=== PATIENT | female | born 2000 | race Caucasian/White ===

== ENCOUNTER 2020-09-25 15:25 | Emergency (ER) | payer OTHER ==
[~2020-09-25] VITALS: Ht 157.5 cm; Wt 54.8 kg
[2020-09-25] MEDS ORDERED: IBUP200T45 PO (15:45)
[2020-09-25] MEDS ORDERED: ZOFR4TAB16 PO ×2 (15:45→21:00)
[2020-09-25 16:20] LABS: BASO # 0.1 10^3/uL (0.0-0.2); BASO % 0.6 % (0.0-1.0); EOS # 0.1 10^3/uL (0.0-0.5); EOS % 1.3 % (0.0-3.0); HEMATOCRIT 40.8 % (36.0-47.0); HEMOGLOBIN 13.4 g/dl (12.0-15.5); LYMPH # 2.2 10^3/uL (1.5-5.0); LYMPH % 26.2 % (24.0-44.0); MEAN CORPUSCULAR HEMOGLOBIN 30.8 pg (27.0-33.0); MEAN CORPUSCULAR HGB CONC 32.8 g/dl (32.0-36.5); MEAN CORPUSCULAR VOLUME 93.8 fl (80.0-96.0); MONO # 0.6 10^3/uL (0.0-0.8); MONO % 6.9 % (2.0-8.0); NEUTROPHILS # 5.4 10^3/uL (1.5-8.5); NEUTROPHILS % 64.5 % (36.0-66.0); PLATELET COUNT, AUTOMATED 216 10^3/uL (150-450); RED BLOOD COUNT 4.35 10^6/uL (4.00-5.40); WHITE BLOOD COUNT 8.3 10^3/uL (4.0-10.0)
[2020-09-25 17:02] LABS: ALBUMIN 3.8 GM/DL (3.2-5.2); BILIRUBIN,DIRECT 0.2 MG/DL (0.0-0.2); BILIRUBIN,TOTAL 0.7 MG/DL (0.2-1.0); TOTAL PROTEIN 6.7 GM/DL (6.4-8.2)
[2020-09-25] MEDS ORDERED: NS 1,000 ML IV ONE (17:15)
[2020-09-25] MEDS ORDERED: LIDOCAINE 2% W/ EPINEPHRINE 1.7 ML DENTAL INJ SM ONE (17:25)
--- NOTE | 2020-09-25 18:10 | REP ---
INDICATION: IUD out March unknown LMP, +HCG. COMPARISON: None. TECHNIQUE: Transabdominal scanning is performed. FINDINGS: Normal size uterus is seen with dimensions of 8.2 x 5.1 x 5.6 cm. There is a gestational sac in the endometrium with mean sac size diameter of 1.1 cm. This corresponds with a 5 week 6 day gestational age estimate. No embryonic pole is appreciated. A yolk sac is seen. There is no evidence of free fluid. Right ovary is not visualized is and appears to be obscured by bowel gas. No right adnexal cyst is seen. The left ovary is normal measuring 3.1 x 2.0 x 2.5 cm. Normal Doppler flow is seen in the left ovary with resistive index 0.49. IMPRESSION: There is an intrauterine gestational sac containing a yolk sac but no visible embryonic pole, 5 weeks 6 days size by mean sac size diameter. Clinical and possibly sonographic follow-up is advised. <Electronically signed by Christos Forbes > 09/25/20 2261
[2020-09-25] MEDS ORDERED: METOCLOPRAMIDE INJ 10MG/2ML VIAL (J2765 PER 1) IV ONE (18:45)
[2020-09-25] MEDS ORDERED: AUGM875T28 PO (20:35)
[2020-09-25 21:03] VITALS: BP 119/71
== END 2020-09-25 21:07 | disposition home or self-care (01) ==
LOC: M ED 15:25 → EDBD 15:25 → M ED 21:07
DX: O99.611 Diseases of the digestive system complicating pregnancy, first trimester (principal); K08.89 Other specified disorders of teeth and supporting structures; O21.9 Vomiting of pregnancy, unspecified; Z3A.01 Less than 8 weeks gestation of pregnancy; Z88.2 Allergy status to sulfonamides
CPT/HCPCS: 64400; 76801; 76817; 80047; 80076; 81001; 83690; 84702; 85025; 86901; 93976; 96360; 96374; 99284; J2765

== ENCOUNTER 2020-12-24 14:59 | Emergency (ER) | payer OTHER ==
[~2020-12-24] VITALS: Ht 157.5 cm; Wt 60.9 kg
[~2020-12-24 14:59] MED LIST: AUGM875T28 PO; IBUP200T45 PO; ZOFR4TAB16 PO
[2020-12-24] MEDS ORDERED: REGL5TAB2 PO (15:11)
[2020-12-24] MEDS ORDERED: ONDANSETRON 4MG/2ML VIAL IV ONE (17:20)
[2020-12-24] MEDS ORDERED: NS 1,000 ML IV ONE (17:20)
[2020-12-24] MEDS ORDERED: ACETAMINOPHEN 500 MG TAB PO ONE (17:20)
[2020-12-24 18:15] LABS: BASO % 0.3 % (0.0-1.0); EOS # 0.1 10^3/uL (0.0-0.5); EOS % 1.1 % (0.0-3.0); HEMATOCRIT 38.2 % (36.0-47.0); HEMOGLOBIN 12.8 g/dl (12.0-15.5); LYMPH # 2.1 10^3/uL (1.5-5.0); LYMPH % 17.5 % (24.0-44.0); MEAN CORPUSCULAR HEMOGLOBIN 31.3 pg (27.0-33.0); MEAN CORPUSCULAR HGB CONC 33.5 g/dl (32.0-36.5); MEAN CORPUSCULAR VOLUME 93.4 fl (80.0-96.0); MONO # 0.6 10^3/uL (0.0-0.8); NEUTROPHILS # 9.2 10^3/uL (1.5-8.5); NEUTROPHILS % 75.1 % (36.0-66.0); PLATELET COUNT, AUTOMATED 210 10^3/uL (150-450); RED BLOOD COUNT 4.09 10^6/uL (4.00-5.40); WHITE BLOOD COUNT 12.2 10^3/uL (4.0-10.0)
--- NOTE | 2020-12-24 18:35 | REP ---
INDICATION: lower abd pain, 19 weeks preg. COMPARISON: 09/25/2020. TECHNIQUE: Real-time sonographic evaluation of gravid uterus performed. FINDINGS: There is a single living intrauterine gestation, estimated gestational age is reportedly 18 weeks 6 days, EDC 05/21/2021. position is cephalic. Placenta anterior and grade 1 with no previa or abruption. heart rate 134 beats per minute. Amniotic fluid appears within normal limits. Cervix is closed and measures 3.7 cm in length. No adnexal abnormality is seen. The left ovary is clearly visualized and is normal. IMPRESSION: Single living intrauterine gestation as discussed above with no evidence of placenta previa or abruption. No adnexal abnormality identified. <Electronically signed by Alvin Ayers > 12/24/20 2901
[2020-12-24 18:48] LABS: ALBUMIN 2.9 GM/DL (3.2-5.2); ALT/SGPT 16 U/L (12-78); BILIRUBIN,DIRECT < 0.1 MG/DL (0.0-0.2); BILIRUBIN,TOTAL 0.4 MG/DL (0.2-1.0); BLOOD UREA NITROGEN 6 MG/DL (7-18); CALCIUM LEVEL 8.2 MG/DL (8.5-10.1); CARBON DIOXIDE LEVEL 22 MEQ/L (21-32); CHLORIDE LEVEL 107 MEQ/L (98-107); CREATININE FOR GFR 0.41 MG/DL (0.55-1.30); GLOMERULAR FILTRATION RATE > 60.0 (>60); GLUCOSE, FASTING 68 MG/DL (70-100); POTASSIUM SERUM 3.7 MEQ/L (3.5-5.1); SODIUM LEVEL 137 MEQ/L (136-145); THYROID STIMULATING HORMONE 0.864 uIU/ML (0.358-3.740); TOTAL PROTEIN 6.3 GM/DL (6.4-8.2)
[2020-12-24 18:53] LABS: RSV AMPLIFICATION NEGATIVE (NEGATIVE)
[2020-12-24] MEDS ORDERED: ONDA4TAB6 PO (20:04)
[2020-12-24 20:16] VITALS: BP 93/55
[2020-12-24 20:16] LABS: AMPHETAMINES LEVEL URINE NEGATIVE (NEGATIVE); BARBITURATES URINE NEGATIVE (NEGATIVE); BENZODIAZEPINES URINE NEGATIVE (NEGATIVE); CANNABINOIDS URINE NEGATIVE (NEGATIVE); COCAINE METABOLITE URINE NEGATIVE (NEGATIVE); METHADONE URINE NEGATIVE (NEGATIVE); OPIATES URINE NEGATIVE (NEGATIVE); PHENCYCLIDINE URINE NEGATIVE (NEGATIVE)
--- NOTE | 2020-12-25 10:16 | ECGEPIP ---
[facility] - ED Test Date: 2020-12-24 Pat Name: JOSH TEJADA Department: Room: - Gender: Female [employer]: : [id number] Requested By: MORTEZA Li PA-C Order Number: [id number] Reading MD: Radha Del Cid Measurements Intervals [place] Rate: 70 P: 32 SC: 190 QRS: 50 QRSD: 100 T: 18 QT: 418 QTc: 451 Interpretive Statements Normal sinus rhythm No prior Electronically Signed on 12-25-2020 10:16:02 EDT by Radha Del Cid
== END 2020-12-24 20:44 | disposition home or self-care (01) ==
LOC: M ED 14:59
DX: O26.892 Other specified pregnancy related conditions, second trimester (principal); R51.9 Headache, unspecified; O21.9 Vomiting of pregnancy, unspecified; R19.7 Diarrhea, unspecified; Z3A.19 19 weeks gestation of pregnancy; Z87.59 Personal history of other complications of pregnancy, childbirth and the puerperium; Z88.2 Allergy status to sulfonamides; Z79.899 Other long term (current) drug therapy
CPT/HCPCS: 76815; 80047; 80048; 80076; 80307; 81001; 84439; 84443; 84702; 85025; 87631; 93005; 96361; 96374; 99284; J2405

== ENCOUNTER → 2021-01-04 | Outpatient (CLI) | payer OTHER ==
[~2021-01-04] MED LIST changes: +ONDA4TAB6 PO; +REGL5TAB2 PO
--- NOTE | 2021-01-04 09:32 | REP ---
INDICATION: ANATOMY. COMPARISON: Comparison sonography December 24, 2020. TECHNIQUE: Transabdominal obstetric sonography. FINDINGS: Scanning through the gravid uterus demonstrates a viable single intrauterine gestation in cephalic lie. motion is observed and heart rate is recorded at 140 beats per minute. A 2 anterior placenta is seen, grade 0, without evidence of placenta previa. Closed cervical length is measured at 4.6 cm transabdominally. No extrauterine abnormality is observed. Amniotic fluid is subjectively normal. No anomaly is seen. The following anatomic structures are identified and felt to be sonographically unremarkable: cranium, choroid plexus, cavum, cerebellum and posterior fossa, face and profile, lungs, four-chamber heart with left and right ventricular outflow tract views, diaphragm, left-sided stomach, abdominal wall cord insertion, three-vessel umbilical cord, kidneys and bladder, spine, and upper and lower extremities. Biometry chart: BPD 4.7 cm, 20 weeks 1 day Head circumference 18.1 cm, 20 weeks 3 days Abdominal circumference 15.5 cm, 20 weeks 5 days Femur length 3.2 cm, 20 weeks 1 day Humeral length 3.2 cm, 20 weeks 5 days HC AC ratio normal 1.17 Cephalic index normal 0.71 Estimated weight 352 g, 0 lb 12 oz, 53rd percentile for 20 weeks 2 days IMPRESSION: Viable single intrauterine gestation at 20 weeks 3 days by today's composite sonographic criteria. ELIU by today's sonography 21 May 2021. No complication identified. Expected gestational age estimate based on known ELIU of 22 May 2021 is 20 weeks 2 days. <Electronically signed by Christos Forbes > 01/04/21 0928
== END ==
LOC: M WHC 08:14
PROVIDERS: ATTEND Advanced Practice Midwife
DX: Z34.82 Encounter for supervision of other normal pregnancy, second trimester (principal); Z3A.20 20 weeks gestation of pregnancy

== ENCOUNTER 2021-01-26 12:48 | Outpatient (CLI) | payer OTHER ==
[~2021-01-26] VITALS: Ht 157.5 cm; Wt 63.4 kg
[2021-01-26 13:08] VITALS: BP 117/79
--- NOTE | 2021-01-26 13:45 | IPNPDOC ---
Text Note Date of Service The patient was seen on 01/26/21. NOTE 20 yo at 23 3/7 weeks by 6 week ultrasound (EDC=05/22/2020) presents with leakage of fluid per vagina after sitting up today. Small amount of leakage since then. no contractions. normal thus far. AVSS NAD Abd: NT, gravid FHT: cat. I toco: none SSE: neg fern, neg nitrazine, neg pool bedside ultrasound: normal PETE, transverse lie, good movement observed A/P 20 yo at 23 3/7 weeks with no evidence of ROM discharge home f-u as scheduled VS,Fishbone, I+O VS, Fishbone, I+O Vital Signs Date Time Temp Pulse Resp B/P (MAP) Pulse Ox O2 Delivery O2 Flow Rate FiO2 01/26/21 13:08 99.2 111 16 117/79 (92) Room Air MARCELLUS VITALE MD Jan 26, 2021 13:44
== END 2021-01-26 13:45 | disposition home or self-care (01) ==
LOC: M LDO 12:48
PROVIDERS: ATTEND Specialist
DX: O47.02 False labor before 37 completed weeks of gestation, second trimester (principal); Z3A.23 23 weeks gestation of pregnancy
CPT/HCPCS: 59025; 76815; G0378; G0463

== ENCOUNTER → 2021-03-01 | Outpatient (CLI) | payer OTHER ==
[~2021-03-01] MED LIST changes: -IBUP200T45 PO; +IBUP200T46 PO
[2021-03-01 18:43] LABS: HEMATOCRIT 35.9 % (36.0-47.0); HEMOGLOBIN 11.1 g/dl (12.0-15.5); MEAN CORPUSCULAR HEMOGLOBIN 29.5 pg (27.0-33.0); MEAN CORPUSCULAR HGB CONC 30.9 g/dl (32.0-36.5); MEAN CORPUSCULAR VOLUME 95.5 fl (80.0-96.0); PLATELET COUNT, AUTOMATED 242 10^3/uL (150-450); RED BLOOD COUNT 3.76 10^6/uL (4.00-5.40)
[2021-03-01 19:08] LABS: ALT/SGPT 10 U/L (12-78); BILIRUBIN,TOTAL 0.2 MG/DL (0.2-1.0); GLOMERULAR FILTRATION RATE > 60.0 (>60); GLUCOSE CHALLENGE TEST 1 HOUR 101 MG/DL (LESS THAN 140); LDH LACTATE DEHYDROGENASE 160 U/L (84-246); URIC ACID 2.8 MG/DL (2.6-6.0)
[2021-03-01 19:37] LABS: CREATININE,RANDOM URINE 61.9 MG/DL
[2021-03-01 19:57] LABS: HEPATITIS C VIRUS ABY INDEX < 0.0 INDEX (<0.8); HIV 1&2 SCREEN CENTAUR NEGATIVE (NEGATIVE)
[2021-03-01 23:35] LABS: GC DNA AMPLIFICATION NEGATIVE (NEGATIVE)
== END ==
LOC: M PLALAB 11:22
PROVIDERS: ATTEND Advanced Practice Midwife
DX: Z34.93 Encounter for supervision of normal pregnancy, unspecified, third trimester (principal); Z3A.25 25 weeks gestation of pregnancy
CPT/HCPCS: 36415; 82247; 82565; 82570; 82950; 83615; 84156; 84450; 84460; 84550; 85027; 86762; 86780; 86803; 86850; 86900; 86901; 87086; 87340; 87389; 87491; 87591; J2790

== ENCOUNTER 2021-03-19 17:45 | Outpatient (CLI) | payer OTHER ==
[~2021-03-19] VITALS: Ht 157.5 cm; Wt 69.3 kg
[2021-03-19 18:02] VITALS: BP 118/80
[2021-03-19] MEDS ORDERED: HOME MED LIST COMPLETE! XX SCH (18:10)
--- NOTE | 2021-03-19 18:54 | IPNPDOC ---
Text Note Date of Service The patient was seen on 03/19/21. NOTE S: Michelle is a 20 year-old at 30 6/7 with an ELIU of 05/22/21 as established by first trimester ultrasound. She reports uterine contractions that began this morning and have increased in frequency and severity. She denies vaginal bleeding or loss of fluids and reports good movement. She denies dysuria, urinary frequency, or hematuria. Her has been complicated by anxiety, poor compliance with care, and a history of gestational hypertension. O: VSS-see below Medical hx: anxiety with panic attacks Family hx: DM Surgical hx: tonsillectomy and wisdom teeth [employer] hx: last pap 2018, no history of STIs OB hx: Preg 1, 07/21/15, 38 5/7, , 7# 4oz, gestational htn Preg 2, 04/03/17 41 3/7, , 7# 3oz Preg 3, current Social hx: , denies tobacco, etoh or illicit drug use. Exam: General: alert and oriented x 3 Respiratory: breathing comfortably on room air, no use of accessory muscles Abdomen: gravid, NTTP Pelvic: SSE reveals visibly closed cervix, no abnormal discharge. SVE reveals cervix that is closed, thick, and high FHR:155, reactive strip [place]: uterine irritability After eating dinner and hydrating, patient reported improvement in her symptoms. Item Value Date Time Urine Color STRAW 03/19/211839 Urine Appearance CLEAR 03/19/211839 Urine pH 7.0 UNITS 03/19/211839 Urine Specific [place] 1.003 03/19/211839 Urine Protein NEGATIVE mg/dL 03/19/211839 Urine Glucose (Auto)(UA) NEGATIVE mg/dL 03/19/211839 Urine Ketones (Auto) 1+ mg/dL H 03/19/211839 Urine Blood NEGATIVE 03/19/211839 Urine Nitrite NEGATIVE 03/19/211839 Urine Bilirubin NEGATIVE 03/19/211839 Urine Urobilinogen 0.2 mg/dL 03/19/211839 Urine Leukocyte Esterase (Auto) NEGATIVE 03/19/211839 Urine WBC (Auto) 0 /HPF 03/19/211839 Urine RBC (Auto) 0 /HPF 03/19/211839 Urine Hyaline Casts (Auto) 0 /LPF 03/19/211839 Urine Bacteria (Auto) NEGATIVE 03/19/211839 Urine Squamous Epithelial Cells 1 /HPF 03/19/211839 A: IUP at 30 6/7, maternal and status reassuring, mild ketonuria, no evidence of labor P: Urine culture obtained. fibronectin obtained, positive result. Transvaginal ultrasound ordered, cervix is closed and 4.3 cm. Findings reviewed with patient. Reviewed hydration and increasing protein intake during the day. Reviewed third trimester precautions. F/U in office with next scheduled appointment. VS,Fishbone, I+O VS, Fishbone, I+O Vital Signs Date Time Temp Pulse Resp B/P (MAP) Pulse Ox O2 Delivery O2 Flow Rate FiO2 03/19/21 18:02 99.9 117 17 118/80 (93) Colette Pa CNM Mar 19, 2021 18:54
[2021-03-19 19:10] LABS: APPEARANCE, URINE CLEAR (CLEAR); BACTERIA, URINE AUTO NEGATIVE (NEGATIVE); BILIRUBIN, URINE AUTO NEGATIVE (NEGATIVE); BLOOD, URINE BLOOD NEGATIVE (NEGATIVE); COLOR, URINE STRAW (YELLOW); GLUCOSE, URINE (UA) AUTO NEGATIVE (NEGATIVE); KETONE, URINE AUTO 1+ mg/dL (NEGATIVE); LEUKOCYTE ESTERASE, URINE AUTO NEGATIVE (NEGATIVE); NITRITE, URINE AUTO NEGATIVE (NEGATIVE); PROTEIN, URINE AUTO NEGATIVE (NEGATIVE); RBC, URINE AUTO 0 /HPF (0-3); SPECIFIC GRAVITY URINE AUTO 1.003 (1.002-1.035); SQUAMOUS EPITHELIAL CELL UR AU 1 /HPF (0-6); UROBILINOGEN, URINE AUTO 0.2 mg/dL (0.0-2.0); WBC, URINE AUTO 0 /HPF (0-3)
[2021-03-19 19:33] VITALS: BP 110/67
--- NOTE | 2021-03-19 20:51 | REPVR ---
PROCEDURE INFORMATION: Exam: US , Transvaginal Exam date and time: 03/19/2021 8:24 PM Age: 20 years old Clinical indication: Lmp or gestational age (in weeks): 31wks; Other: Contraction; ; Additional info: Contractions, cervical length TECHNIQUE: Imaging protocol: Real-time transvaginal obstetrical ultrasound of the maternal pelvis with image documentation. Transvaginal imaging was used for better evaluation of the fetus, adnexa, and/or cervix. COMPARISON: OBS COMPLETE US 01/04/2021 8:23 AM FINDINGS: Gestation: Intrauterine gestation. presentation: Fetus in cephalic presentation. heart rate: heart rate 163 bpm. Placenta: Anterior placenta without evidence of placenta previa, grade 2. MATERNAL: Cervix: Cervix measures 4.5 cm. Mild funneling demonstrated. No bulging membranes. IMPRESSION: Cervix measures 4.5 cm. Mild funneling demonstrated. No bulging membranes. Electronically signed by: Mele Tinsley On 03/19/2021 20:51:03 PM
== END 2021-03-19 20:45 | disposition home or self-care (01) ==
LOC: M LDO 17:45
PROVIDERS: ATTEND Advanced Practice Midwife
DX: O60.03 Preterm labor without delivery, third trimester (principal); O99.343 Other mental disorders complicating pregnancy, third trimester; F41.9 Anxiety disorder, unspecified; Z86.32 Personal history of gestational diabetes; Z3A.30 30 weeks gestation of pregnancy
CPT/HCPCS: 59025; 76817; 81001; 82731; 87086; G0378; G0463

== ENCOUNTER 2021-03-22 13:49 | Outpatient (CLI) | payer OTHER ==
[~2021-03-22] VITALS: Ht 157.5 cm; Wt 69.7 kg
[2021-03-22 14:08] VITALS: BP 132/75
[2021-03-22] MEDS ORDERED: HOME MED LIST COMPLETE! XX SCH (14:30)
[2021-03-22 15:02] VITALS: BP 113/61
[2021-03-22 15:32] LABS: APPEARANCE, URINE CLEAR (CLEAR); BACTERIA, URINE AUTO 1+ (NEGATIVE); BILIRUBIN, URINE AUTO NEGATIVE (NEGATIVE); BLOOD, URINE BLOOD NEGATIVE (NEGATIVE); COLOR, URINE STRAW (YELLOW); GLUCOSE, URINE (UA) AUTO NEGATIVE (NEGATIVE); KETONE, URINE AUTO NEGATIVE (NEGATIVE); LEUKOCYTE ESTERASE, URINE AUTO NEGATIVE (NEGATIVE); NITRITE, URINE AUTO NEGATIVE (NEGATIVE); PROTEIN, URINE AUTO NEGATIVE (NEGATIVE); RBC, URINE AUTO 0 /HPF (0-3); SPECIFIC GRAVITY URINE AUTO 1.005 (1.002-1.035); SQUAMOUS EPITHELIAL CELL UR AU 1 /HPF (0-6); UROBILINOGEN, URINE AUTO 0.2 mg/dL (0.0-2.0); WBC, URINE AUTO 1 /HPF (0-3)
--- NOTE | 2021-03-22 15:59 | REP ---
INDICATION: contractions, cervical length. COMPARISON: None. TECHNIQUE: Transvaginal assessment of the cervix FINDINGS: The cervix measures 4.2 cm in length and is closed. IMPRESSION: As above. <Electronically signed by iMchael Duran > 03/22/21 2275
--- NOTE | 2021-03-22 16:26 | IPNPDOC ---
Text Note Date of Service The patient was seen on 03/22/21. NOTE Subjective: Michelle is a 20-year-old female who is a who is 31.2 weeks gestation with an ELIU of 05/22/21 based off of early first trimester ultrasound. She has had limited care and came to [facility] in her second trimester to establish care. Her has been complicated by anxiety with panic attacks, minimal care and a history of GHTN with her first . She was seen in L&D 2 days ago with complaints of painful contractions and she had a positive FFN and her cervix was over 4 cm with some funneling noted. Today she reports contractions that are painful over the last 2 days that have gotten worse. She also reports saturating her underwear one time today. Denies leaking any fluid since. Reports active movement. Denies vaginal bleeding. OB Hx: -07/21/15: of male at 38.5 weeks weighting 7 lbs 4 oz, epidural, no complications -04/03/17: of female at 41.3 weeks gestation, epidural, early placental abruption that resolved Medical Hx: anxiety with panic attacks Family Hx: diabetes Surgical Hx: wisdom teeth and tonsillectomy Social Hx: . No history of alcohol, drug or smoking. Objective: VS, labs and sono: see below. FHR: 140, moderate variability, positive accelerations, no decelerations. [place]: periods of very irregular infrequent contractions and then periods of contractions every 2 to 4 minutes General: Awake and alert. Sitting up in bed. Does not appear to be in any distress. Respiratory: regular rate and rhythm. No use of accessory muscles. Abdomen: soft and not tender to palpation SSE: Cervix appears thick and closed. No pooling of fluid noted and none from the cervical os with Valsalva. Negative nitrazine and negative fern. Normal physiologic discharge noted. No bleeding from cervical os. SCE: 1 cm, 50% effaced, -2 station, no show, midposition, moderate. Assessment: IUP at 31.2 weeks gestation, contractions, not in labor. Plan: Transvaginal ultrasound done. No change in cervical length and no funneling noted on sono. Given Terbutaline to see if this helps stop her contractions. Patient aware of findings. Contractions stopped with terbutaline. Reviewed access to care, kick count, labor signs and danger signs to report. Discharged to home with precautions. VS,Fishbone, I+O VS, Fishbone, I+O Vital Signs Date Time Temp Pulse Resp B/P (MAP) Pulse Ox O2 Delivery O2 Flow Rate FiO2 03/22/21 15:02 106 18 113/61 (78) 03/22/21 14:09 98.6 03/22/21 14:08 98 Room Air EXAMINATION REQUESTED: TRANSVAGINAL US REASON FOR PATIENT VISIT: LABOR CHECK. REASON FOR EXAM/COMMENT: contractions, cervical length INDICATION: contractions, cervical length. COMPARISON: None. TECHNIQUE: Transvaginal assessment of the cervix FINDINGS: The cervix measures 4.2 cm in length and is closed. IMPRESSION: As above. <Electronically signed by Michael Duran > 03/22/21 1555 DD: Michael Duran MD DO 03/22/21 1555 Item Value Date Time Urine Color STRAW 03/22/21 145 Urine Appearance CLEAR 03/22/21 145 Urine pH 7.0 UNITS 03/22/21 1459 Urine Specific [place] 1.005 03/22/21 145 Urine Protein NEGATIVE mg/dL 03/22/21 1459 Urine Glucose (Auto)(UA) NEGATIVE mg/dL 03/22/21 145 Urine Ketones (Auto) NEGATIVE mg/dL 03/22/21 1459 Urine Blood NEGATIVE 03/22/21 1459 Urine Nitrite NEGATIVE 03/22/21 1459 Urine Bilirubin NEGATIVE 03/22/21 145 Urine Urobilinogen 0.2 mg/dL 03/22/21 1459 Urine Leukocyte Esterase (Auto) NEGATIVE 03/22/21 1459 Urine WBC (Auto) 1 /HPF 03/22/21 1459 Urine RBC (Auto) 0 /HPF 03/22/21 1459 Urine Hyaline Casts (Auto) 0 /LPF 03/22/21 1459 Urine Bacteria (Auto) 1+ H 03/22/21 145 Urine Squamous Epithelial Cells 1 /HPF 03/22/21 1459 SCOTTY HARRISON Mar 22, 2021 16:26
[2021-03-22] MEDS ORDERED: TERBUTALINE SULFATE 1 MG/ML VIAL (J3105) SC ONE (16:30)
[2021-03-22 16:38] VITALS: BP 113/73
[2021-03-22] MEDS ORDERED: ONDANSETRON 4 MG ORAL DISINTEGRATING TAB PO ONE (17:30)
[2021-03-22 18:29] VITALS: BP 111/65
== END 2021-03-22 18:36 | disposition home or self-care (01) ==
LOC: M LDO 13:49
PROVIDERS: ATTEND Advanced Practice Midwife
DX: O60.03 Preterm labor without delivery, third trimester (principal); O99.343 Other mental disorders complicating pregnancy, third trimester; F41.0 Panic disorder [episodic paroxysmal anxiety]; Z3A.31 31 weeks gestation of pregnancy
CPT/HCPCS: 59025; 76817; 81001; 96372; G0378; G0463; J3105; Q0162

== ENCOUNTER 2021-04-22 17:19 | Outpatient (CLI) | payer OTHER ==
[~2021-04-22] VITALS: Ht 157.5 cm; Wt 72.2 kg
[2021-04-22 17:46] VITALS: BP 118/76
[2021-04-22] MEDS ORDERED: TYLENOL PM PO (18:18)
[2021-04-22] MEDS ORDERED: HOME MED LIST COMPLETE! XX SCH (18:20)
[2021-04-22] MEDS ORDERED: ACETAMINOPHEN 500 MG TAB PO ONE (18:35)
[2021-04-22 19:43] VITALS: BP 105/71
[2021-06-25] MEDS ORDERED: LEXA1TAB (07:21)
[2021-06-25] MEDS ORDERED: ADDE10CA3 PO (12:38)
[2021-06-25] MEDS ORDERED: XANA0.5T PO (12:38)
== END 2021-04-22 19:44 | disposition home or self-care (01) ==
LOC: M LDO 17:19
PROVIDERS: ATTEND Obstetrics & Gynecology
DX: O60.03 Preterm labor without delivery, third trimester (principal); Z3A.35 35 weeks gestation of pregnancy
CPT/HCPCS: 59025; 81001; G0378; G0463

== ENCOUNTER → 2021-05-04 | Outpatient (REF) | payer OTHER ==
[~2021-05-04] MED LIST changes: +ACET325C5 PO; +ADDE10CA3 PO; +LEXA1TAB; +TYLENOL PM PO; +XANA0.5T PO
== END ==
LOC: M SFHCWAGY 17:17
PROVIDERS: ATTEND Advanced Practice Midwife
DX: Z36.89 Encounter for other specified antenatal screening (principal); Z3A.37 37 weeks gestation of pregnancy

== ENCOUNTER → 2021-05-11 | Outpatient (REF) | payer OTHER ==
[~2021-05-11] MED LIST changes: -ADDE10CA3 PO; -LEXA1TAB; -XANA0.5T PO
== END ==
LOC: M SFHCWAGY 12:40
PROVIDERS: ATTEND Advanced Practice Midwife
DX: Z36.9 Encounter for antenatal screening, unspecified (principal)
CPT/HCPCS: 87086; G0463

== ENCOUNTER 2021-05-12 17:19 | Outpatient (CLI) | payer OTHER ==
[~2021-05-12] VITALS: Ht 157.5 cm; Wt 73.0 kg
[~2021-05-12 17:19] MED LIST changes: -ACET325C5 PO
[2021-05-12 17:40] VITALS: BP 119/76
[2021-05-12 19:47] VITALS: BP 124/75
== END 2021-05-12 20:15 | disposition home or self-care (01) ==
LOC: M LDO 17:19
PROVIDERS: ATTEND Advanced Practice Midwife
DX: O60.03 Preterm labor without delivery, third trimester (principal); O99.343 Other mental disorders complicating pregnancy, third trimester; F41.9 Anxiety disorder, unspecified; Z3A.38 38 weeks gestation of pregnancy
CPT/HCPCS: 59025; G0378; G0463

== ENCOUNTER 2021-05-17 07:45 | Inpatient (IN) | payer OTHER ==
[~2021-05-17] VITALS: Ht 157.5 cm; Wt 73.7 kg
[2021-05-17] VITALS (42 sets, daily range): BP systolic 69–148; BP diastolic 36–103
[2021-05-17] MEDS ORDERED: ACET325C5 PO (08:07)
[2021-05-17] MEDS ORDERED: HOME MED LIST COMPLETE! XX SCH (08:10)
[2021-05-17] MEDS ORDERED: LACTATED RINGER'S 1000 ML IV STA (09:16)
[2021-05-17] MEDS ORDERED: CARBOPROST TROMETHAMINE 250 MCG/ML AMP IM PRN (09:20)
[2021-05-17] MEDS ORDERED: LIDOCAINE 1% MDV 20ML VIAL INFIL PRN (09:20)
[2021-05-17] MEDS ORDERED: LR 1,000 ML IV SCH (09:20)
[2021-05-17] MEDS ORDERED: TRANEXAMIC ACID INJection 1,000 MG in NS 100 ML IV PRN (09:20)
[2021-05-17] MEDS ORDERED: METHYLERGONOVINE MALEATE 0.2 MG/ML VIAL (J2210) IM PRN ×2 (09:20→23:20)
[2021-05-17] MEDS ORDERED: OXYTOCIN DRIP 30 UNITS in IV 1 EA IV PRN (09:20)
[2021-05-17] MEDS ORDERED: OXYTOCIN DRIP 30 UNITS in IV 1 EA IV SCH (10:40)
[2021-05-17 10:53] LABS: HEMATOCRIT 32.2 % (36.0-47.0); HEMOGLOBIN 9.7 g/dl (12.0-15.5); MEAN CORPUSCULAR HGB CONC 30.1 g/dl (32.0-36.5); PLATELET COUNT, AUTOMATED 236 10^3/uL (150-450); RED BLOOD COUNT 3.88 10^6/uL (4.00-5.40); WHITE BLOOD COUNT 12.1 10^3/uL (4.0-10.0)
[2021-05-17] MEDS ORDERED: FENTANYL 2MCG/ML ROPIVACAINE 0.2% IN 0.9% NACL 100ML IVBAG As Ordered ONE (19:28)
[2021-05-17] MEDS ORDERED: EPIDURAL COMMENT XX SCH (21:10)
[2021-05-17] MEDS ORDERED: REFRIGERATOR IV KEYS XX PRN (21:10)
[2021-05-17] MEDS ORDERED: diphenhydrAMINE 50MG/ML VIAL (J1200) IV PRN (21:10)
[2021-05-17] MEDS ORDERED: FENTANYL/ROPIVACAINE/NACL BAG 100 ML EPIDURAL SCH (21:10)
[2021-05-17] MEDS ORDERED: ONDANSETRON 4MG/2ML VIAL IV PRN (21:10)
[2021-05-17] MEDS ORDERED: EPIDURAL/PCA KEYS XX PRN (21:10)
[2021-05-17] MEDS ORDERED: NALOXONE INJ 0.4MG/1ML VIAL (J2310 PER 1MG) IV PRN (21:10)
[2021-05-17] MEDS ORDERED: LACTATED RINGER'S 1000 ML IV PRN (21:10)
[2021-05-17] MEDS ORDERED: ACETAMINOPHEN 500 MG TAB PO ONE (21:35)
[2021-05-17] MEDS: ePHEDrine SULFATE 25 MG/5 ML(5MG/ML) SYRINGE IV PRN ×3 (22:03→22:24)
[2021-05-17] MEDS ORDERED: METHYLERGONOVINE MALEATE 0.2 MG TAB PO PRN (23:20)
[2021-05-17] MEDS ORDERED: IBUPROFEN 600MG TAB PO PRN (23:20)
[2021-05-17] MEDS ORDERED: MOM 30ML SUSPENSION UDC PO PRN (23:20)
[2021-05-17] MEDS ORDERED: MEASLES,MUMPS,RUBELLA VACCINE INJ (MMR-II) (90707) SC SCH (23:20)
[2021-05-17] MEDS ORDERED: RHOGAM 300 MCG (1500 IU) INJ (J2790) IM SCH (23:20)
[2021-05-17] MEDS ORDERED: DIBUCAINE 1% OINTMENT 30GM TOP PRN (23:20)
[2021-05-17] MEDS ORDERED: ANUSOL HC CREAM 30GM TOP PRN (23:20)
[2021-05-17] MEDS ORDERED: DOCUSATE SODIUM 100MG CAPSULE PO PRN (23:20)
[2021-05-18 00:18] VITALS: BP 100/50
[2021-05-18 00:40] VITALS: BP 97/56
[2021-05-18 01:00] VITALS: BP 110/55
[2021-05-18] MEDS: ONDANSETRON 4MG/2ML VIAL IV SCH ×3 (01:20→13:06)
[2021-05-18] MEDS: IBUPROFEN 800 MG TAB PO PRN ×3 (01:45→18:28)
[2021-05-18] MEDS: ACETAMINOPHEN 500 MG TAB PO PRN ×2 (04:52→22:21)
[2021-05-18 06:00] VITALS: BP 99/51
[2021-05-18] MEDS: PRENATAL VITAMINS CHEWABLE TABLET PO SCH (07:59)
[2021-05-18] MEDS: ESCITALOPRAM OXALATE 10 MG TAB (LEXAPRO) PO SCH (12:05)
[2021-05-18] MEDS: ACETAMINOPHEN TAB 650MG DOSE (2X325MG) PO PRN ×2 (12:28→16:39)
[2021-05-18 22:00] VITALS: BP 109/63
[2021-05-19] MEDS: IBUPROFEN 800 MG TAB PO PRN (02:56)
[2021-05-19 06:00] VITALS: BP 108/65
[2021-05-19] MEDS: ESCITALOPRAM OXALATE 10 MG TAB (LEXAPRO) PO SCH (08:19)
[2021-05-19] MEDS: PRENATAL VITAMINS CHEWABLE TABLET PO SCH (08:20)
[2021-05-19] MEDS: ACETAMINOPHEN 500 MG TAB PO PRN (08:20)
== END 2021-05-19 11:50 | disposition home or self-care (01) | DRG 805 ==
LOC: M LDI 07:45 → M OBS 05-18 01:01
PROVIDERS: ADMIT Advanced Practice Midwife; ATTEND Advanced Practice Midwife
PROC: 10E0XZZ Delivery of Products of Conception, External Approach (ICD-10-PCS; principal; 2021-05-17)
PROC: 3E033VJ Introduction of Other Hormone into Peripheral Vein, Percutaneous Approach (ICD-10-PCS; 2021-05-17)
DX: O98.52 Other viral diseases complicating childbirth (principal); Z37.0 Single live birth; U07.1 COVID-19; Z3A.39 39 weeks gestation of pregnancy; O69.81X0 Labor and delivery complicated by cord around neck, without compression, not applicable or unspecified

== ENCOUNTER → 2021-07-05 | Outpatient (CLI) | payer OTHER ==
[~2021-07-05] MED LIST changes: +ACET325C5 PO; +ADDE10CA3 PO; +LEXA1TAB; +XANA0.5T PO
== END ==
LOC: M LABSMTC 10:44
PROVIDERS: ATTEND Anesthesiology
DX: Z01.818 Encounter for other preprocedural examination (principal); Z11.52 Encounter for screening for COVID-19

== ENCOUNTER 2021-07-09 08:40 | Day surgery (SDC) | payer OTHER ==
[~2021-07-09] VITALS: Ht 157.5 cm; Wt 60.4 kg
[~2021-07-09 08:40] MED LIST changes: +LIDOCAINE 1% MDV 20ML VIAL SQ PRN; +LR 1,000 ML IV ONE
[2021-07-09] MEDS ORDERED: dexameTHASONE 4 MG/ML 1ML VIAL (J1100 PER 1MG) As Ordered ONE ×2 (09:00→09:02)
[2021-07-09] MEDS ORDERED: MIDAZOLAM INJ 2MG/2ML VIAL (J2250 PER 1MG) As Ordered ONE (09:00)
[2021-07-09] MEDS ORDERED: ONDANSETRON 4MG/2ML VIAL As Ordered ONE (09:00)
[2021-07-09] MEDS ORDERED: KETOROLAC 60MG 2ML VIAL As Ordered ONE (09:00)
[2021-07-09] MEDS ORDERED: fentaNYL 100 MCG/2 ML INJECTION As Ordered ONE (09:00)
[2021-07-09] MEDS ORDERED: LIDOCAINE 2% 100MG/5ML SDV (FOR ANES.) As Ordered ONE (09:01)
[2021-07-09] MEDS ORDERED: propofoL 200 MG/20 ML VIAL As Ordered ONE (09:01)
[2021-07-09] MEDS ORDERED: ROCURONIUM BROMIDE 50 MG/5 ML VIAL As Ordered ONE (09:01)
[2021-07-09] MEDS ORDERED: BUPIVACAINE HCL 0.25% 10ML VIAL As Ordered ONE (09:43)
[2021-07-09] MEDS ORDERED: ACETAMINOPHEN 1000MG 100ML IV BTL (OFIRMEV) (J0131 PER 10MG) As Ordered ONE (10:38)
[2021-07-09] MEDS ORDERED: SUGAMMADEX SODIUM 500 MG/5 ML VIAL (BRIDION) As Ordered ONE (10:54)
[2021-07-09] MEDS ORDERED: fentaNYL 100 MCG/2 ML INJECTION IV PRN (11:35)
[2021-07-09] MEDS ORDERED: oxyCODONE 5MG TAB PO PRN (11:35)
[2021-07-09] MEDS ORDERED: LR 1,000 ML IV SCH (11:35)
[2021-07-09] MEDS ORDERED: ONDANSETRON 4MG/2ML VIAL IV PRN (11:35)
[2021-07-09 12:15] VITALS: BP 112/67
== END 2021-07-09 12:25 | disposition home or self-care (01) ==
LOC: M SDC 08:40
PROVIDERS: ATTEND Obstetrics & Gynecology
DX: Z30.2 Encounter for sterilization (principal); F41.9 Anxiety disorder, unspecified; F32.9 Major depressive disorder, single episode, unspecified; F17.290 Nicotine dependence, other tobacco product, uncomplicated; Z88.2 Allergy status to sulfonamides; Z79.899 Other long term (current) drug therapy
CPT/HCPCS: 58661; 81025; 88302; J0131; J1100; J1885; J2250; J2405; J3010